=== PATIENT | female | born 1990 | race Caucasian/White ===

== ENCOUNTER 2017-05-22 15:15 | Emergency (ER) | payer OTHER ==
[2017-05-22] MEDS ORDERED: NORMAL SALINE 1,000 ML IV ONE (15:35)
[2017-05-22] MEDS ORDERED: MORPHINE SULFATE 4 MG/ML SYRG IV ONE (15:35)
[2017-05-22] MEDS ORDERED: MORPHINE SULFATE 4 MG/ML SYRG ONE (15:36)
[2017-05-22 15:45] LABS: Hematocrit 42.7 % (37.0-47.0); Hemoglobin 14.4 gm/dL (12.5-16.0); Mean Cell Volume 90.5 fl (78-100); Mean Corpuscular Hemoglobin 30.5 pg (27-31); Mean Corpuscular Hgb Conc 33.7 g/dl (32-36); Red Blood Count 4.72 M/mm3 (4.2-5.4); White Blood Count 11.7 K/mm3 (4.0-10.5)
[2017-05-22 15:46] LABS: Mean Platelet Volume 9.9 fl (6.0-9.5); Neutrophil # 8.5 K/mm3 (1.3-6.0); Neutrophil % 72.3 % (42-75.0); Platelet Count 158 K/mm3 (150-450); Red Cell Distribution Width 12.5 % (11.5-14.0)
[2017-05-22 15:58] LABS: Albumin * 3.8 gm/dl (3.4-5.0); Anion Gap 13.4 mmol/L (6.8-13.8); BUN/Creatinine Ratio 7.7 (9.0-21.6); Bilirubin, Total 0.4 mg/dL (0.0-1.1); Ca. Corrected For Albumin 8.7 mg/dL (8.4-10.2); Calcium * 8.9 mg/dL (7.9-10.9); Carbon Dioxide 26.2 mmol/L (24-32.6); Potassium 3.6 mmol/L (3.4-4.6); Total Protein 7.8 gm/dL (6.2-8.2)
[2017-05-22 16:10] LABS: Urine Bilirubin Negative (NEGATIVE); Urine Blood 50 /ul (NEGATIVE); Urine Ketone Negative (NEGATIVE); Urine Protein Negative (NEGATIVE); Urine Urobilinogen Normal (NORMAL)
[2017-05-22 16:21] LABS: Urine Appearance Slightly Cloudy; Urine Bacteria 4+; Urine Color Yellow; Urine Nitrite Positive (NEGATIVE); Urine RBC 0-5 /hpf (0-5); Urine WBC 0-5 /hpf (0-5)
[2017-05-22] MEDS ORDERED: DIATRIZOATE MEGLUMINE, SODIUM 30 ML BTL PO ONE (16:39)
[2017-05-22] MEDS ORDERED: DIATRIZOATE MEGLUMINE, SODIUM 30 ML BTL ONE (16:58)
--- NOTE | 2017-05-22 19:39 | ERNOTE ---
Abdominal HPI - Narrative Date of Service: 05/22/17 - General Chief Complaint: Abdominal Pain Time Seen by Provider: 05/22/17 15:26 Source: patient Exam Limitations: no limitations - Immun/Allergies/Home Medications Immunizatons: IMMUNIZATION HX Immunizations Up to Date Yes History of Influenza Vaccine Yes Hx Pneumococcal Vaccination No Allergies/Adverse Reactions: Allergies aspirin Adverse Reaction (Unknown, Verified 05/22/17 15:23) Other Home Medications: HOME MEDICATIONS Amox Tr/Potassium Clavulanate [Augmentin 875-125 Tablet] 875 mg PO Q12H #20 tab 05/22/17 [Last Taken Unknown] Cyclobenzaprine HCl [Flexeril] 10 mg PO TID PRN 05/22/17 [Last Taken 05/21/17] HYDROcodone/ACETAMINOPHEN [[place] 5-325] 1 tab PO Q6H PRN #12 tab 05/22/17 [Last Taken Unknown] - History of Present Illness Narrative: Patient presents to the ED for abdominal pain. This is RLQ pain that radiates to her right back. It has been coming and going for a month. Since yesterday it has been more persistent and she has developed a fever. Pain moderate, worse with movement. No vomiting, has had fever. Has not seen anyone else for this. No CP or SOB. No dysuria. No hematuria. No vaginal d/c. Timing: intermittent Quality: moderate Activities at Onset: none Modifying Factors - (Improves): Present: rest Associated Symptoms: Present: fever/chills. Absent: headache, diaphoresis, diarrhea-gross blood, vomiting, shortness of breath, weakness Prior Abdominal Problems: Present: other - had recent check for STDs and pelvic exam Review of Systems - Review of Systems Constitutional: Absent: fever ENT: Absent: sore throat Respiratory: Absent: shortness of breath Cardiology: Absent: chest pain Gastrointestinal/Abdominal: Present: See HPI Genitourinary: Absent: dysuria Musculoskeletal: Present: back pain Skin: Absent: rash Neurological: Absent: weakness - Patient's Past Medical History Patient History - Medical: Anxiety, Depression Patient History - Cardiac/Respiratory: Asthma, Hypertension Patient History - Cancer: No Hx of Cancer Patient History - Surgical Procedures: No surgical history Patient History - Other: None LMP (Calendar): 12/17/15 - Family History Mother Family History - Cardiac/Respiratory: Hypertension Father Family History - Medical: Diabetes Type 2 - Social History Living Situations: home Psych History: Hx of Anxiety Smoking Status: Current every day smoker Have you smoked in the past 12 months: Yes Do you dip or chew tobacco: No Alcohol Use: none Drug Use: none - Immunizations Immunizations Up to Date: Yes Hx Pneumococcal Vaccination: No History of Influenza Vaccine: Yes Physical Exam - Physical Exam General Appearance: Present: alert, no apparent distress, other - Non-toxic, no distress, well hydrated. Head Exam: Present: normal inspection Eye Exam: Normal inspection: bilateral, PERRL: bilateral Ears, Nose, Throat: Present: normal ENT inspection Neck: Present: normal inspection Respiratory: Present: no respiratory distress, normal breath sounds, no accessory muscle use, lungs clear Cardiovascular/Chest: Present: regular rate, rhythm Gastrointestinal/Abdominal: Present: normal bowel sounds, nondistended, soft, other - Mild RLQ tenderness, no guarding or rebound. No peritoneal signs. non- surgical exam Back Exam: Present: normal inspection, no vertebral tenderness, other - very mild right CVA tenderness Extremity Exam: Present: normal inspection Neurological Exam: Present: alert, normal mood/affect, no motor/sensory deficits Skin Exam: Present: normal color, warm/dry Pelvic Exam: Present: other - I recommended pelvic exam. She declines this. She understands risks and benefits, declines exam as she recently had one. ED Progress - Results and Orders Patient's Lab Results:: I have reviewed the patient's lab results. - Vital Signs Patient's Vital Signs:: I have reviewed the patient's vital signs. Vital Signs: Vital Signs 05/22/17 05/22/17 05/22/17 15:20 15:30 15:45 Temperature 38.6 C H Pulse Rate 135 H 130 H 117 H Respiratory 16 Rate Blood Pressure 122/75 128/91 127/81 O2 Sat by Pulse 97 97 97 Oximetry 05/22/17 05/22/17 05/22/17 16:05 16:30 17:00 Temperature 37.7 C H Pulse Rate 122 H 117 H 98 Respiratory 16 Rate Blood Pressure 118/71 128/79 138/90 O2 Sat by Pulse 100 98 Oximetry 05/22/17 05/22/17 17:30 18:12 Temperature 37.2 C Pulse Rate 72 120 H Respiratory 16 16 Rate Blood Pressure 124/74 120/71 O2 Sat by Pulse 99 98 Oximetry - CT/Ultrasound CT/Ultrasound Narrative: I reviewed official CT report abd/pelvis - Progress/Reassessment Chief Complaint: Abdominal Pain Progress Note-Subjective: 05/22/17 19:33 Patient declines pelvic exam. She feels better with IV fluids. IV ABx ordered. Likely pyelo. No suggestion of appendicitis or kidney stone. No suggestion of sepsis or toxicity. I offered her hospitalization for her pyelo but she declines this. She understands risks and benefits. She wishes to go home. I discussed warning signs and reasons to return as well as the need for close f/u. Departure - Departure Clinical Impression: Abdominal pain, UTI (urinary tract infection) Disposition: Home self-care Condition: Stable Instructions: Pyelonephritis, Adult, [id number] Additional Instructions: Rest. Fluids. Take antibiotics as directed. Return if your change your mind about hospitalization, develop vomiting, high fever, increased pain or if your condition worsens or changes in any way. Prescriptions: Amox Tr/Potassium Clavulanate [Augmentin 875-125 Tablet] 875 mg PO Q12H #20 tab HYDROcodone/ACETAMINOPHEN [[place] 5-325] 1 tab PO Q6H PRN #12 tab PRN Reason: Pain
[2017-05-22 20:29] VITALS: BP 110/71
== END 2017-05-22 20:14 | disposition home or self-care (01) ==
LOC: ER 15:15
DX: R10.9 Unspecified abdominal pain (principal); N39.0 Urinary tract infection, site not specified; I10 Essential (primary) hypertension; F17.200 Nicotine dependence, unspecified, uncomplicated